=== PATIENT | female | born 1945 | race Caucasian/White ===

== ENCOUNTER 2018-12-12 16:10 | Emergency (ER) | payer MEDICARE, BC ==
[~2018-12-12] VITALS: Ht 165.1 cm; Wt 78.0 kg
[2018-12-12 17:04] LABS: BASOPHILS % (AUTO) 0.2 % (0-1); EOSINOPHILS # (AUTO) 0.1 X10'3 (0-0.9); EOSINOPHILS % (AUTO) 1.2 % (0-6); HEMATOCRIT 43.8 % (35.0-45.0); HEMOGLOBIN 14.7 g/dl (12.0-16.0); LYMPHOCYTES # (AUTO) 1.3 X10'3 (1.1-4.8); LYMPHOCYTES % (AUTO) 15.7 % (21-51); MEAN CORPUSCULAR HGB CONC 33.7 g/dL (33.0-36.5); MEAN PLATELET VOLUME 8.3 FL (7.4-10.4); MONOCYTES # (AUTO) 0.3 X10'3 (0-0.9); NEUTROPHILS # (AUTO) 6.8 X10'3 (1.8-7.7); NEUTROPHILS % (AUTO) 78.9 % (42-75); PLATELET COUNT 258 X10'3 (140-440); RED BLOOD COUNT 4.33 X10'6 (4.20-5.60); RED CELL DISTRIBUTION WIDTH 14.1 % (11.5-14.5); WHITE BLOOD COUNT 8.6 X10'3 (4.5-11.0)
[2018-12-12 17:32] LABS: ALBUMIN 3.7 G/DL (3.4-5.0); ANION GAP 9 (8-16); BILIRUBIN,TOTAL 0.4 MG/DL (0.1-1.0); BLOOD UREA NITROGEN 17 MG/DL (7-18); BUN/CREATININE RATIO 26.2 (6.6-38.0); CALCIUM 9.1 MG/DL (8.5-10.1); CHLORIDE 104 MMOL/L (99-107); CREATININE 0.65 MG/DL (0.40-0.90); GLUCOSE 114 MG/DL (70-104); POTASSIUM 4.2 MMOL/L (3.5-5.1); SODIUM 140 MMOL/L (135-145); TOTAL CARBON DIOXIDE 27.1 MMOL/L (24-32); TOTAL PROTEIN 6.8 G/DL (6.4-8.2); eGFR 90 ML/MIN
[2018-12-12 17:33] LABS: ALANINE AMINOTRANSFERASE 22 U/L (12-78); ALBUMIN/GLOBULIN RATIO 1.2 (1.1-1.5); ALKALINE PHOSPHATASE 85 IU/L (46-116); ASPARTATE AMINO TRANSFERASE 19 U/L (10-37)
[2018-12-12 17:40] LABS: INR 1.1 INR; PROTHROMBIN TIME 11.4 SECONDS (9.0-12.0)
[2018-12-12 18:36] LABS: CLARITY,URINE CLEAR (Clear); COLOR,URINE YELLOW (Yellow); GLUCOSE, URINE NEGATIVE (Neg); KETONES,URINE 40 mg/dl (Neg); LEUKOCYTE ESTERASE ,URINE NEGATIVE (Neg); NITRITES, URINE NEGATIVE (Neg); OCCULT BLOOD,URINE SMALL (Neg); PH,URINE 5.5 (4.8-8.0); PROTEIN,URINE NEGATIVE (Neg); UROBILINOGEN,URINE 0.2 E.U/dL (0.2-1.0)
[2018-12-12 18:39] LABS: UA COLLECTION TYPE CLN CATCH MIDSTREAM
[2018-12-12 18:42] LABS: WBC,URINE NONE SEEN /HPF (0-4)
[2018-12-12 18:43] LABS: BACTERIA,URINE FEW /HPF (Neg); MUCUS STRANDS FEW /LPF (Neg); RBC,URINE 20-50 /HPF (0-2); SQUAMOUS EPITHELIAL CELL,UR FEW /LPF (FEW)
[2018-12-12] MEDS ORDERED: morphine 4 MG/ML inj SYRINge IV ONE ×2 (19:05→19:50)
[2018-12-12] MEDS ORDERED: ondansetron/PF 4mg/2ml inj IV ONE ×2 (19:05→19:50)
[2018-12-12] MEDS ORDERED: ketorolac tromethamine 15mg/ml inj. IV ONE (21:15)
[2018-12-12] MEDS ORDERED: normal saline 1000ML IV soln IVB ONE (21:15)
[2018-12-12] MEDS ORDERED: HYDR-4353 PO (22:00)
[2018-12-12] MEDS ORDERED: FLO0.4C PO (22:00)
[2018-12-12] MEDS ORDERED: ONDA4TAB6 PO (22:00)
[2018-12-12 22:14] VITALS: BP 129/70
== END 2018-12-12 22:23 | disposition home or self-care (01) ==
LOC: ER 16:11
DX: N20.0 Calculus of kidney (principal); M06.9 Rheumatoid arthritis, unspecified; Z90.710 Acquired absence of both cervix and uterus; Z79.899 Other long term (current) drug therapy
CPT/HCPCS: 36415; 74176; 80053; 81001; 85025; 85610; 93005; 96374; 96375; 96376; 99284; J1885; J2270; J2405

== ENCOUNTER 2018-12-14 13:25 | Observation (INO) | payer MEDICARE, BC ==
[~2018-12-14] VITALS: Ht 170.2 cm; Wt 75.0 kg
[~2018-12-14 13:25] MED LIST: FLO0.4C PO; HYDR-4353 PO; ONDA4TAB6 PO
[2018-12-14 14:08] LABS: BASOPHILS % (AUTO) 0.3 % (0-1); EOSINOPHILS # (AUTO) 0.1 X10'3 (0-0.9); EOSINOPHILS % (AUTO) 1.2 % (0-6); HEMATOCRIT 41.6 % (35.0-45.0); LYMPHOCYTES # (AUTO) 1.4 X10'3 (1.1-4.8); LYMPHOCYTES % (AUTO) 15.4 % (21-51); MEAN CORPUSCULAR HEMOGLOBIN 33.8 PG (27.0-31.0); MEAN CORPUSCULAR HGB CONC 33.6 g/dL (33.0-36.5); MEAN CORPUSCULAR VOLUME 100.4 FL (78-98); MEAN PLATELET VOLUME 8.1 FL (7.4-10.4); MONOCYTES # (AUTO) 0.5 X10'3 (0-0.9); MONOCYTES % (AUTO) 5.6 % (2-12); NEUTROPHILS # (AUTO) 7.2 X10'3 (1.8-7.7); NEUTROPHILS % (AUTO) 77.5 % (42-75); PLATELET COUNT 234 X10'3 (140-440); RED BLOOD COUNT 4.14 X10'6 (4.20-5.60); RED CELL DISTRIBUTION WIDTH 14.1 % (11.5-14.5); WHITE BLOOD COUNT 9.4 X10'3 (4.5-11.0)
[2018-12-14 14:16] LABS: CLARITY,URINE CLEAR (Clear); COLOR,URINE YELLOW (Yellow); GLUCOSE, URINE NEGATIVE (Neg); KETONES,URINE 15 mg/dl (Neg); LEUKOCYTE ESTERASE ,URINE NEGATIVE (Neg); NITRITES, URINE NEGATIVE (Neg); OCCULT BLOOD,URINE SMALL (Neg); PH,URINE 6.5 (4.8-8.0); PROTEIN,URINE NEGATIVE (Neg); UROBILINOGEN,URINE 0.2 E.U/dL (0.2-1.0)
[2018-12-14 14:17] LABS: UA COLLECTION TYPE CLN CATCH MIDSTREAM
[2018-12-14 14:17] LABS: INR 1.1 INR; PROTHROMBIN TIME 11.4 SECONDS (9.0-12.0)
[2018-12-14 14:21] LABS: ALANINE AMINOTRANSFERASE 22 U/L (12-78); ALBUMIN 3.5 G/DL (3.4-5.0); ALBUMIN/GLOBULIN RATIO 1.1 (1.1-1.5); ALKALINE PHOSPHATASE 72 IU/L (46-116); ANION GAP 8 (8-16); ASPARTATE AMINO TRANSFERASE 24 U/L (10-37); BILIRUBIN,TOTAL 1.1 MG/DL (0.1-1.0); BLOOD UREA NITROGEN 14 MG/DL (7-18); CALCIUM 9.5 MG/DL (8.5-10.1); CHLORIDE 104 MMOL/L (99-107); CREATININE 0.61 MG/DL (0.40-0.90); GLUCOSE 97 MG/DL (70-104); POTASSIUM 3.8 MMOL/L (3.5-5.1); SODIUM 142 MMOL/L (135-145); TOTAL CARBON DIOXIDE 29.6 MMOL/L (24-32); TOTAL PROTEIN 6.7 G/DL (6.4-8.2); eGFR > 90 ML/MIN
[2018-12-14 14:30] LABS: BACTERIA,URINE FEW /HPF (Neg); MUCUS STRANDS FEW /LPF (Neg); SQUAMOUS EPITHELIAL CELL,UR FEW /LPF (FEW); WBC,URINE 0-4 /HPF (0-4)
[2018-12-14 14:31] LABS: HYALINE CASTS 0-3 /LPF (NEGATIVE)
[2018-12-14] MEDS ORDERED: ondansetron/PF 4mg/2ml inj IV ONE (16:35)
[2018-12-14] MEDS ORDERED: normal saline 1000ML IV soln IVB ONE (16:35)
[2018-12-14] MEDS ORDERED: morphine 4 MG/ML inj SYRINge IV ONE (16:35)
[2018-12-14] MEDS ORDERED: ketorolac tromethamine 15mg/ml inj. IV ONE (16:35)
--- NOTE | 2018-12-14 16:40 | NUR ---
Dr. Yousif will be calling back in 20 minutes
[2018-12-14] MEDS ORDERED: MULT1TAB74 PO (17:37)
[2018-12-14] MEDS ORDERED: CELE200C PO (17:37)
[2018-12-14] MEDS ORDERED: CALC1TAB PO (17:37)
[2018-12-14] MEDS ORDERED: CHOL2000 PO (17:37)
[2018-12-14] MEDS ORDERED: METH2.5T PO (17:37)
[2018-12-14] MEDS ORDERED: OMEG1CAP PO (17:37)
[2018-12-14] MEDS ORDERED: B CO1TAB4 PO (17:37)
[2018-12-14] MEDS ORDERED: PYRI50TA10 PO (17:37)
[2018-12-14] MEDS ORDERED: FOLI1TAB16 PO (17:37)
--- NOTE | 2018-12-14 18:57 | NUR ---
Patient transferred to ED 16 and report given to DAVID Alfaro. Patient is resting comfortably in bed and vital signs remain WNL.
[2018-12-14] MEDS ORDERED: morphine 4 MG/ML inj SYRINge IV PRN ×2 (19:20)
[2018-12-14] MEDS ORDERED: ondansetron/PF 4mg/2ml inj IV PRN (19:20)
[2018-12-14] MEDS ORDERED: mag hydrox/Alum hydrox/simeth 30ml oral suspension PO PRN (19:20)
[2018-12-14] MEDS ORDERED: acetaminophen 325mg tablet PO PRN (19:20)
[2018-12-14] MEDS ORDERED: magnesium hydroxide 30ml (MOM) UD suspension PO PRN (19:20)
[2018-12-14] MEDS ORDERED: HYDROcodone/acetaminophen 5mg/325mg tablet PO PRN (19:20)
[2018-12-14] MEDS: calcium carbonate/vitamin D3 tablet PO SCH (20:58)
[2018-12-14] MEDS: tamsulosin 0.4mg capsule PO SCH (20:58)
[2018-12-14] MEDS: normal saline 1000ml 1,000 ML IV SCH (20:59)
[2018-12-14 23:05] VITALS: BP 127/53
--- NOTE | 2018-12-14 23:05 | NUR ---
PATIENT ADMITTED TO ROOM 357A FROM ER FOR NEPHROLITHIASIS. PLACED COMFORTABLE IN BED. VITAL SIGNS TAKEN AND RECORDED.
[2018-12-15] VITALS (15 sets, daily range): BP systolic 92–139; BP diastolic 47–98
[2018-12-15] MEDS: normal saline 1000ml 1,000 ML IV SCH ×2 (05:28→15:17)
[2018-12-15 05:49] LABS: BASOPHILS % (AUTO) 0.4 % (0-1); EOSINOPHILS # (AUTO) 0.1 X10'3 (0-0.9); EOSINOPHILS % (AUTO) 1.7 % (0-6); HEMATOCRIT 34.6 % (35.0-45.0); HEMOGLOBIN 11.8 g/dl (12.0-16.0); LYMPHOCYTES # (AUTO) 1.4 X10'3 (1.1-4.8); LYMPHOCYTES % (AUTO) 28.4 % (21-51); MEAN CORPUSCULAR HEMOGLOBIN 34.1 PG (27.0-31.0); MEAN CORPUSCULAR HGB CONC 34.1 g/dL (33.0-36.5); MEAN CORPUSCULAR VOLUME 99.9 FL (78-98); MEAN PLATELET VOLUME 8.4 FL (7.4-10.4); MONOCYTES # (AUTO) 0.3 X10'3 (0-0.9); MONOCYTES % (AUTO) 6.9 % (2-12); NEUTROPHILS # (AUTO) 3.2 X10'3 (1.8-7.7); NEUTROPHILS % (AUTO) 62.6 % (42-75); PLATELET COUNT 178 X10'3 (140-440); RED BLOOD COUNT 3.46 X10'6 (4.20-5.60); RED CELL DISTRIBUTION WIDTH 13.6 % (11.5-14.5); WHITE BLOOD COUNT 5.1 X10'3 (4.5-11.0)
[2018-12-15 06:02] LABS: ALBUMIN 2.6 G/DL (3.4-5.0); ANION GAP 9 (8-16); BLOOD UREA NITROGEN 11 MG/DL (7-18); BUN/CREATININE RATIO 22.4 (6.6-38.0); CALCIUM 8.1 MG/DL (8.5-10.1); CHLORIDE 108 MMOL/L (99-107); CREATININE 0.49 MG/DL (0.40-0.90); GLUCOSE 72 MG/DL (70-104); POTASSIUM 3.5 MMOL/L (3.5-5.1); SODIUM 142 MMOL/L (135-145); TOTAL CARBON DIOXIDE 25.3 MMOL/L (24-32); eGFR > 90 ML/MIN
--- NOTE | 2018-12-15 06:30 | NUR ---
Problems reprioritized. Patient report given, questions answered & plan of care reviewed with TONI HERNANDEZ.
--- NOTE | 2018-12-15 06:39 | NUR ---
Patient in room [facility] 357. I have received report from brandi paz rn and had the opportunity to ask questions and assume patient care.
[2018-12-15] MEDS: celeCOXIB 100mg capsule PO SCH (07:17)
[2018-12-15] MEDS: pyridoxine 50mg tablet PO SCH (07:23)
[2018-12-15] MEDS: vitamin D (cholecalciferol) 1,000 unit tablet PO SCH (07:23)
[2018-12-15] MEDS: folic acid 1mg tablet PO SCH (07:23)
[2018-12-15] MEDS: multivitamins, therapeutics tablet PO SCH (07:23)
[2018-12-15] MEDS: calcium carbonate/vitamin D3 tablet PO SCH ×2 (07:23→20:17)
[2018-12-15] MEDS: HYDROcodone/acetaminophen 10/325mg tab PO PRN ×3 (11:50→20:18)
[2018-12-15] MEDS ORDERED: iohexol 300 MG/1 ML 50ml polymer ONE (13:40)
--- NOTE | 2018-12-15 16:31 | NUR ---
PT TRANSFERRED TO OR
[2018-12-15] MEDS ORDERED: midazolam 2 mg/2 ml injection ONE (17:22)
[2018-12-15] MEDS ORDERED: propofol inj 20 ML IV ONE (17:31)
[2018-12-15] MEDS ORDERED: ePHEDrine 50MG/ML INJ. ONE (17:48)
--- NOTE | 2018-12-15 18:08 | NUR ---
Received from OR via SURGICAL BED , accompanied by Anesthesiologist CONCHIS and report given by Anesthesiolgist. PATIENT WITH 20G PIV IN LEFT AC RUNNING LR AT 100. 10L MASK ON WITH 100% SATURATIONS. VSS. DENIES PAIN. Addendum: 12/15/18 at 1819 by Otto Gtz RN, RN Amended: Links added.
--- NOTE | 2018-12-15 18:10 | NUR ---
I have received report from TONI HERNANDEZ and had the opportunity to ask questions and assume patient care. PATIENT IN OR FOR REMOVAL OF URETERAL STONE.
[2018-12-15] MEDS ORDERED: ringers solution, lacted 1,000 ML IV SCH (18:18)
[2018-12-15] MEDS ORDERED: ondansetron/PF 4mg/2ml inj IV PRN (18:20)
[2018-12-15] MEDS ORDERED: proCHLORperazine 10 MG/2 ml inj IV PRN (18:20)
[2018-12-15] MEDS ORDERED: fentaNYL/PF 50MCG/1 ML 2ML syringe IV PRN (18:20)
[2018-12-15] MEDS ORDERED: meperidine/PF 25mg/ml syringe IV PRN ×2 (18:20)
--- NOTE | 2018-12-15 18:30 | NUR ---
I have received report from SAHARA HERNANDEZ from Recovery Room and had the opportunity to ask questions, patient ready for transfer to the floor.
--- NOTE | 2018-12-15 18:40 | NUR ---
ALL DC CRITERIA HAS BEEN MET. VSS. SPOUSE ACCOMPANIED TO 3RD FLOOR WHERE SHE GOT UP TO USE THE RESTROOM WITH ASSIST OF DAVID PATEL. RN PRESENT AND WILL SET PATIENT UP WITH VS AND CALL LIGHT. BED IN LOW POSITION. CARE ASSUMED BY ZHANNA. Addendum: 12/15/18 at 1844 by Otto Gtz RN, RN Amended: Links added.
--- NOTE | 2018-12-15 18:41 | NUR ---
PATIENT TRANSFERRED TO ROOM 357A FROM RECOVERY ROOM AFTER REMOVAL OF URETERAL STONE WAS DONE BY DR. MCKENZIE. PLACED COMFORTABLE IN BED. VITAL SIGNS MONITORED.
[2018-12-15] MEDS: tamsulosin 0.4mg capsule PO SCH (20:17)
[2018-12-16] VITALS: BP 100/51
[2018-12-16] MEDS: normal saline 1000ml 1,000 ML IV SCH (00:43)
[2018-12-16 05:59] LABS: BASOPHILS % (AUTO) 0.1 % (0-1); EOSINOPHILS # (AUTO) 0.1 X10'3 (0-0.9); EOSINOPHILS % (AUTO) 1.9 % (0-6); HEMATOCRIT 34.7 % (35.0-45.0); HEMOGLOBIN 11.9 g/dl (12.0-16.0); LYMPHOCYTES # (AUTO) 1.7 X10'3 (1.1-4.8); MEAN CORPUSCULAR HEMOGLOBIN 34.3 PG (27.0-31.0); MEAN CORPUSCULAR HGB CONC 34.4 g/dL (33.0-36.5); MEAN CORPUSCULAR VOLUME 99.7 FL (78-98); MEAN PLATELET VOLUME 8.6 FL (7.4-10.4); MONOCYTES # (AUTO) 0.4 X10'3 (0-0.9); MONOCYTES % (AUTO) 7.8 % (2-12); NEUTROPHILS # (AUTO) 3.5 X10'3 (1.8-7.7); NEUTROPHILS % (AUTO) 61.2 % (42-75); PLATELET COUNT 185 X10'3 (140-440); RED BLOOD COUNT 3.48 X10'6 (4.20-5.60); RED CELL DISTRIBUTION WIDTH 13.3 % (11.5-14.5); WHITE BLOOD COUNT 5.7 X10'3 (4.5-11.0)
[2018-12-16 06:09] LABS: ALBUMIN 2.6 G/DL (3.4-5.0); ANION GAP 12 (8-16); BLOOD UREA NITROGEN 11 MG/DL (7-18); CALCIUM 8.4 MG/DL (8.5-10.1); CHLORIDE 107 MMOL/L (99-107); GLUCOSE 66 MG/DL (70-104); POTASSIUM 3.7 MMOL/L (3.5-5.1); SODIUM 143 MMOL/L (135-145); TOTAL CARBON DIOXIDE 24.5 MMOL/L (24-32); eGFR > 90 ML/MIN
--- NOTE | 2018-12-16 06:20 | NUR ---
Problems reprioritized. Patient report given, questions answered & plan of care reviewed with TONI HERNANDEZ.
[2018-12-16] MEDS: calcium carbonate/vitamin D3 tablet PO SCH (08:29)
[2018-12-16] MEDS: celeCOXIB 100mg capsule PO SCH (08:29)
[2018-12-16] MEDS: vitamin D (cholecalciferol) 1,000 unit tablet PO SCH (08:29)
[2018-12-16] MEDS: pyridoxine 50mg tablet PO SCH (08:29)
[2018-12-16] MEDS: multivitamins, therapeutics tablet PO SCH (08:29)
[2018-12-16] MEDS: folic acid 1mg tablet PO SCH (08:30)
[2018-12-16 11:56] VITALS: BP 120/60
--- NOTE | 2018-12-16 12:10 | NUR ---
PT DISCHARGED IN STABLE CONDITION. LEFT FACILITY IN PRIVATE VEHICLE WITH . IV DC CANULA INTACT. ALL BELONGINGS IN HAND. FOLLOW UP INSTRUCTIONS GIVEN, ALL QUESTIONS ANSWERED. Addendum: 12/16/18 at 1223 by Ofelia Machuca RN Amended: Links added.
== END 2018-12-16 12:11 | disposition home or self-care (01) ==
LOC: ER 13:26 → ED HOLD 19:17 → SUR 3N 23:00
PROVIDERS: ADMIT Internal Medicine; ATTEND Family Medicine
DX: N20.2 Calculus of kidney with calculus of ureter (principal); M06.9 Rheumatoid arthritis, unspecified
CPT/HCPCS: 36415; 52325; 76000; 80048; 80053; 81001; 85025; 85610; 87070; 93005; 96374; 96375; 99284; G0378; J1885; J2250; J2405; J2704; J7030; Q9967; 88300; A4402; A7000; C1758; C1769; J7120

== ENCOUNTER 2024-06-27 13:42 | Emergency (ER) | payer BC ==
[~2024-06-27] VITALS: Ht 170.2 cm; Wt 72.5 kg
[~2024-06-27 13:42] MED LIST changes: +B-CO1TAB5 PO; +CALC1TAB PO; +CELE200C PO; +CHOL2000 PO; -FLO0.4C PO; +FOLI1TAB27 PO; -HYDR-4353 PO; +METH2.5T PO; +MULT-620 PO; +OMEG1CAP61 PO; -ONDA4TAB6 PO; +PYRI-3 PO
[2024-06-27 15:19] VITALS: BP 140/72; PULSE 70; RESP 16; TEMP 98.6; O2SAT 98
== END 2024-06-27 15:24 | disposition home or self-care (01) ==
LOC: ER 13:43
DX: M79.662 Pain in left lower leg (principal); Z79.899 Other long term (current) drug therapy; Z79.2 Long term (current) use of antibiotics; Z90.710 Acquired absence of both cervix and uterus
CPT/HCPCS: 93971; 99284